=== PATIENT | male | born 1990 | race Two or more races ===

== ENCOUNTER 2023-01-19 01:48 | Emergency (ER) | payer SELFPAY ==
[~2023-01-19] VITALS: Ht 170.2 cm; Wt 63.5 kg
[2023-01-19 02:11] VITALS: BP 167/80; TEMP 97.9; O2SAT 98
== END 2023-01-19 02:37 | disposition left against medical advice (07) ==
LOC: ER 01:49
DX: F41.9 Anxiety disorder, unspecified (principal); R11.2 Nausea with vomiting, unspecified